=== PATIENT | female | born 1950 | race Caucasian/White ===

== ENCOUNTER 2022-07-27 08:36 | Outpatient (CLI) | payer OTHER, SELFPAY | END 2022-07-27 08:37 | disposition home or self-care (01) | LOC: NFLDREF 08-03 09:36 | PROVIDERS: PCP Internal Medicine; Referring Provider Internal Medicine; Visit Provider Internal Medicine | DX: Z00.00 Encounter for general adult medical examination without abnormal findings (principal); E11.9 Type 2 diabetes mellitus without complications; E78.5 Hyperlipidemia, unspecified; E03.9 Hypothyroidism, unspecified | CPT/HCPCS: 80061; 82947; 84443 ==

== ENCOUNTER 2023-06-14 10:07 | Outpatient (CLI) | payer MEDICARE, SELFPAY ==
--- NOTE | 2023-06-14 10:15 | CRLHL7_ITS ---
For Patients: As a result of the Century Cures Act, medical imaging exams and procedure reports are released immediately into your electronic medical record. You may view this report before your referring provider. If you have questions, please contact your health care provider. HISTORY: Right hip and buttock pain. TECHNIQUE: Routine pelvis protocol. FINDINGS: No abnormality of bone marrow signal intensity is seen throughout the pelvic bones or proximal femurs to suggest fracture, tumor or avascular necrosis. The gluteal and hamstring tendons are intact. No findings for bursitis. Mild osteoarthritic changes of both hip joints are noted with moderate to severe articular cartilage loss and small osteophytes. Diverticulosis of the left colon is noted. No intrapelvic mass. There is a small amount of free fluid present within the pelvis posteriorly. There is acute angulation of the central portion of the coccyx without bone marrow edema or fracture line. This could be developmental or related to old injury. IMPRESSION: 1. Mild osteoarthritis of both hip joints. 2. Small amount of free fluid within the pelvis of unknown etiology. Given the patient`s age, consider pelvic ultrasound for further evaluation. Dictated by Franko Robles MD @ 06/16/2023 5:44:39 AM (Electronically Signed)
--- OUTSIDE RECORDS SUMMARY | 2023-06-14 10:15 | XMS_ITS | Encounter Summary ---
Author Name Unknown Organization [facility] Address [address] [address] Care Team Providers Care Feed Mill Operator Name Role Phone Jenni Huddleston MD Primary Care Provider + Reason for Visit * Procedure/Equipment (Routine) - Incomplete Specialty Diagnoses / Procedures Referred By Lyubov t Referred To Contact Diagnoses Visit for screening mammogram Procedures MM Mammogram Screening Bilat W 3D Edgar W CAD Shasha Gandhi MD [address] [place] [address] Referral ID Status Reason Start Date Expiration Date V isits Requested Visits Authorized [id number] Incomplete 03/14/2023 06/12/2024 1 1 Encounter Details Date Type Department Care Team Description 04/22/2023 8:40 AM HEAD NURSE Ancillary Procedure [facility] [address] [facility] [place], [place] [phone] Shasha Gandhi MD [address] [place] [address] Visit for screening mammogram Social History Tobacco Use Types Packs/Day Years Used Date Smoking Tobacco: Never Smokeless Tobacco: Never Alcohol Use Standard Drinks/Week Comments Yes 14 (1 standard drink = 0.6 oz pu re alcohol) 14 glasses of wine a wk PHQ-2 Answer Date Recorded PHQ-2 Score 1 02/20/2021 Sex and Gender Information Value Date Recorded Sex Assigned at Not on file Gender Identity Not on file Sexual Orientation Not on file documented as of this encounter Plan of Treatment Upcoming Encounters Date Type Department Care Team Description 2023 7:45 AM HEAD NURSE Appointment [place] [address] [address] [place] [address] Aleah Sheppard MD [address] [place] [address] documented as of this encounter Procedures Procedure Name Priority Date/Time Associated Diagnosis Comments MM MAMMOGRAM SCREENING BILAT W 3D EDGAR W CAD Routine 04/22/2023 8:54 AM HEAD NURSE Visit for screening mammogram documented in this encounter Results * MM Mammogram Screening Bilat W 3D Edgar W CAD (04/22/2023 8:54 AM HEAD NURSE) Anatomical Region Laterality Modality Breast Bilateral Mammography Impressions 04/22/2023 9:24 AM HEAD NURSE : ACR BI-RADS Category 1: Negative RECOMMENDATION: Follow Up Imaging in 12 months - Bilateral The results and recommendations of this examination will be communicated to the patient. Narrative 04/22/2023 9:24 AM HEAD NURSE MM MAMMOGRAM SCREENING BILAT W 3D EDGAR W CAD performed on 04/22/23 Compared to: 04/16/2022 MM Mammogram Screening Bilat W CAD, 03/27/2021 MM Mammogram Screening Bilat W CAD, and 02/24/2020 MM Mammogram Screening Bilat W CAD ??? FINDINGS: Bilateral screening mammogram was performed with the assistance of Computer-Aided Detection and breast tomosynthesis. The breasts have scattered areas of fibroglandular density. There is no radiographic evidence of malignancy. ?? Shasha Gandhi MD RAD [facility] documented in this encounter Visit Diagnoses Diagnosis Visit for screening mammogram Other screening mammogram documented in this encounter Care Teams Feed Mill Operator Relationship Specialty Start Date End Date Jenni Huddleston MD [address] [place] [address] PCP - General Internal Medicine 04/16/22 documented as of this encounter
--- OUTSIDE RECORDS SUMMARY | 2023-06-14 10:15 | XMS_ITS | Clinical Summary ---
Author Name Unknown Organization [facility] Address [address] [place] [address] Care Team Providers Care Show Card Letterer Name Role Phone Jenni Huddleston MD Primary Care Provider + Source Comments You are receiving this document as you are listed as the primary care provider,follow-up provider, or the patient has been referred to you for consultation.This is in compliance with the Medicare andMedicaid EHR Incentive Program,which states Providers who transition their patient to another setting of careor provider of care or refers their patient to another provider of care shouldprovide summary care record for each transition of care or referral. cisimple Allergies Active Allergy Reactions Criticality Noted Date Comments Ampicillin Rash 11/19/2002 Medications Medication Sig Dispensed Refills Start Date End Date Status fluticasone (FLONASE) 50 MCG/ACT nasal solution Place 2 sprays into each nostril daily (every 24 hours). Dose is for each nostril. 0 01/06/2016 Active ALBUterol sulfate HFA 108 (90 Base) MCG/ACT inhalerIndications:Mil d intermittent asthma without complication (HRC) Inhale 1-2 Puffs every 4 hours as needed (Inhale 1-2 puffs every 4 hours as needed.). 1 Inhaler 3 02/18/2019 Active fluocinolone (SYNALAR) 0.01 % external solution Apply topically two times a day. 60 mL 3 01/22/2020 Active Fluocinolone Acetonide Scalp 0.01 % OILIndications:Seborrh eic dermatitis of scalp Apply to scalp 1-5 times a week as needed for scalp itching 118 mL 11 02/22/2020 Active ketoconazole (NIZORAL) 2 % shampooIndications:Tomasz orrheic dermatitis, unspecified Apply to scalp 2-3 times weekly. 120 mL 12 04/06/2021 Active atorvastatin (LIPITOR) 20 MG tablet Take 1 Tablet (20 mg) by mouth daily. 90 Tablet 3 03/01/2022 Active levothyroxine (SYNTHROID) 100 MCG tabletIndications:Post operative hypothyroidism Take 1 Tablet (100 mcg) by mouth daily. 90 Tablet 3 04/16/2022 Active Active Problems Problem Noted Date Diagnosed Date Pure hypercholesterolemia 03/19/2021 History of basal cell carcinoma (BCC) of skin Overview: 12/25/18 Skin, midline chin: Nodular basal cell carcinoma History of thyroid cancer 12/25/2012 Overview: papillary 1995, s/p initial thyroid lobe removal + LN dissection, followed by complete thyroid removal. Goal TSH should be 0.3-2 Romero consult 2016 (see media tab) implied a TSH goal of 1-1.5 Impaired fasting glucose 08/26/2012 Mild intermittent asthma without complication Overview: Infrequent use of albuterol Postoperative hypothyroidism 10/31/2002 Allergic rhinitis 10/31/2002 Resolved Problems Problem Noted Date Diagnosed Date Resolved Date Hyperplastic colon polyp 04/19/2019 Scapular dyskinesis 11/20/2015 01/12/20 17 Overview: Scapular dyskinesis, right Osteoarthrosis, hand 06/19/2012 014 Overview: Osteoarthrosis, unspecified whether generalized or localized, hand Osteoarthritis of multiple joints 05/07/2011 01/15/2018 Overview: Osteoarthrosis involving, or with mention of more than one site, but not specified as generalized, multiple sites Chronic lymphocytic thyroiditis 11/29/2004 04/14/2006 Overview: LW Onset: [id number] ; Thyroiditis Susana's Encounters Date Type Department Care Team Description 04/22/2023 8:40 AM STUNT DOUBLE Ancillary Procedure [facility] [address] [place] [address] Shasha Gandhi MD Visit for screening mammogram from Last 3 Months Immunizations Name Administration Dates Next Due Flu Vac Preserv Free (3+yrs) 04/14/2012, 03/16/2011,03/08/2008,2005,05/04/2004 Influenza (Fluzone 0.25, 6-35 mos) 04/13/2013 Influenza IIV3 (Trivalent) F luzone Highdose, 65+ Yrs (96507) 02/18/2019,03/22/2018,03/29/2017 Influenza IIV4 (Quadrivalent ) 0.5mL (88722) 04/18/2016,03/05/2014,04/13/2013 Influenza IIV4 (Quadrivalent ) Fluad, 65+ Yrs 02/20/2021,02/22/2020 Influenza, Unspecified Formulation 03/11,05/08/2000,03/16/1999,1997,03/23/1997,03/14/1996,03/23/1995,1 06/20/1993 Moderna Monovalent 12+ 07/25/2020,2020 OPV, Trivalent (Orimune or tOPV) 08/27/1990 PCV13 (Prevnar) 01/11/2017 PPSV23 (Pneumovax) 01/15/2018,05/23/1998 TDAP (BOOSTRIX) 12/25/2011 Td 10/18/2004,08/27/1990 Zoster (Zostavax) 12/25/2011 Zoster RZV (Shingrix) 06/08/2019,02/18/2019 Family History Medical History Relation Name Comments Diabetes Mother Duane Glaucoma Mother Duane Hypertension Mother Duane Macular Degeneration Mother Duane wet Stroke Mother Duane Cancer, Breast Maternal Aunt Amblyopia/Strabismus Negative Family History Blindness Negative Family History Cancer, Endometrial Negative Family History Cancer, Ovary Negative Family History Retinal Detachment Negative Family History Relation Name Status Comments Mother Duane Maternal Aunt Social History Tobacco Use Types Packs/Day Years [...] on file Sexual Orientation Not on file Last Filed Vital Signs Vital Sign Reading Time Taken Comments Blood Pressure 129/88 02/20/2021 9:14 AM CDT Pulse 61 02/20/2021 9:14 AM CDT Temperature 36.8 ??C (98.3 ??F) 05/01/2019 4:01 PM CS T Respiratory Rate 16 05/01/2019 4:01 PM STUNT DOUBLE Oxygen Saturation 100% 05/01/2019 4:01 PM STUNT DOUBLE Inhaled Oxygen Concentration - - Weight 69.4 kg (153 lb) 02/20/2021 9:02 AM CDT Height 167.6 cm (5' 6) 02/20/2021 9:02 AM CDT Body Mass Index 24.69 02/20/2021 9:02 AM CDT Plan of Treatment Upcoming Encounters Date Type Department Care Team Description 2023 7:45 AM STUNT DOUBLE Appointment [facility] [address] [place], [place] [phone] Aleah Sheppard MD [address] [place] [address] Health Maintenance Due Date Last Done Comments COVID-19 Vaccine ( season) 2023 07/25/2020, 2020 Influenza (#1) 2023 03/07/2022, 01/26, 02/20/2021, Additional history exists Med Monitoring TSH 04/16/2023 04/16/2022, 0 02/20/2021, 02/22/2020, Additional history exists Medicare Annual Wellness Visit 05/27/2023 Colonoscopy 04/15/2024 04/15/2019, 03/28, 04/19/2014 (Completed), Additional history exists Mammogram 04/22/2024 04/22/2023, 03/28, 03/27/2021, Additional history exists Dexa 01/19/2026 01/20/2016 Cholesterol 02/20/2026 02/20/2021, 01/26, 01/15/2018, Additional history exists DTaP/Tdap/Td (3 - Tdap) 07/30/2032 07/31/19 23, 12/25/2011, 10/18/2004, Additional history exists IPV (Polio) Aged Out 08/27/1990, 08/27/1990 No lo nger eligible based on patient's age to complete this topic Hep C Screening (Preventive Services) Completed 01/11/2017 Pneumococcal 65+ Yrs Completed 01/15/2018, 01/11/2017, 05/23/1998 Zoster/Shingles Completed 06/08/2019, 01/26, 12/25/2011 HepA Aged Out No longer eligi ble based on patient's age to complete this topic HepB Aged Out No longer eligi ble based on patient's age to complete this topic Hib Aged Out No longer eligi ble based on patient's age to complete this topic MCV4 Aged Out No longer eligi ble based on patient's age to complete this topic Procedures Procedure Name Priority Date/Time Associated Diagnosis Comments MM MAMMOGRAM SCREENING BILAT W 3D CHINO W CAD Routine 04/22/2023 8:54 AM STUNT DOUBLE Visit for screening mammogram from Last 3 Months Results * MM Mammogram Screening Bilat W 3D Chino W CAD (04/22/2023 8:54 AM STUNT DOUBLE) Anatomical Region Laterality Modality Breast Bilateral Mammography Impressions 04/22/2023 9:24 AM STUNT DOUBLE : ACR BI-RADS Category 1: Negative RECOMMENDATION: Follow Up Imaging in 12 months - Bilateral The results and recommendations of this examination will be communicated to the patient. Narrative 04/22/2023 9:24 AM STUNT DOUBLE MM MAMMOGRAM SCREENING BILAT W 3D CHINO W CAD performed on 04/22/23 Compared to: [...] malignancy. ?? Shasha Gandhi MD RAD [facility] from Last 3 Months Care Teams Show Card Letterer Relationship Specialty Start Date End Date Jenni Huddleston MD [address] [facility] [place] [address] PCP - General Internal Medicine 04/16/22
--- OUTSIDE RECORDS SUMMARY | 2023-06-14 10:15 | XMS_ITS | Encounter Summary ---
Author Name Unknown Organization [facility] Address [address], [place] [address] Care Team Providers Care Movie Critic Name Role Phone Jenni Huddleston MD Primary Care Provider + Reason for Visit * Reason Comments Eye Exam Encounter Details Date Type Department Care Team Description 01/24/2023 8:40 AM CDT Office Visit [facility] [address]mology [address] [facility] [address] Telly Abdi, OD [address] [place], [place] [id number] Pseudophakia of both eyes (Primary Dx); Retinal tear of right eye; Epiretinal membrane, left eye; History of vitrectomy Social History Tobacco Use Types Packs/Day Years [...] on file documented as of this encounter Progress Notes * Telly Abdi, OD - 01/24/2023 8:40 AM CDT I reviewed the information stated in the triage technician's note for today and agree, unless otherwise noted below. I reviewed the patient's past medical history, medications, family history, and social history. General: Generally healthy appearing. Alert and oriented x 3. Subjective: See tech note for today Assessment: ICD-10-CM 1. Pseudophakia of both eyes Z96.1 2. Retinal tear of right eye H33.311 3. Epiretinal membrane, left eye H35.372 4. History of vitrectomy Z98.890 Plan: 1. doing well; copy of new Rx given 2. h/o nasal RD w/ HST, well surrounding by laser; RD precautions rtc betsy; observe 3-4. h/o erm LE s/p ppv/mp (Dr. Glover); doing well; great acuity; observe rtc 1 yr Discussed findings with the patient. documented in this encounter Plan of Treatment Upcoming Encounters Date Type Department Care Team Description 2023 7:45 AM CABLE MAINTAINER Appointment [place] [address] [address] [facility] [place] [address] Aleah Sheppard MD [address] [place] [address] documented as of this encounter Visit Diagnoses Diagnosis Pseudophakia of both eyes- Primary Lens replaced by other means Retinal tear of right eye Epiretinal membrane, left eye Macular puckering of retina History of vitrectomy Other states following surgery of eye and adnexa documented in this encounter Care Teams Movie Critic Relationship Specialty Start Date End Date Jenni Huddleston MD [address] [place] [address] PCP - General Internal Medicine 04/16/22 documented as of this encounter
== END 2023-06-14 10:08 | disposition home or self-care (01) ==
PROVIDERS: PCP Internal Medicine; Visit Provider Internal Medicine
DX: M25.551 Pain in right hip (principal); M16.0 Bilateral primary osteoarthritis of hip; M79.18 Myalgia, other site; R20.0 Anesthesia of skin
CPT/HCPCS: 72195

== ENCOUNTER 2023-07-09 08:15 | Outpatient (RCR) | payer OTHER, SELFPAY ==
--- NOTE | 2023-03-28 13:10 | PT.OPEX ---
PT [place] Outpatient Eval PT [facility] Outpatient Eval Start: 03/14/23 15:52 Freq: Status: Active Protocol: Document 03/14/23 14:04 HN (Rec: 03/15/23 17:01 HN [id number]) E-signed By Sofiya Sepulveda DPT Physical Therapy Outpatient Evaluation Insurance Information Insurance Name [place] [employer] Insurance Information/Comments [facility] Medical Diagnosis G57. 0 for Lesion of sciatic nerve Treating Diagnosis M54. 31 for Sciatica, right side Referring MD Shasha Gandhi MD Subjective Subjective Patient is a 72 year old female with R insidious onset glute pain and radiating symptoms in November or December 2022. Pain is waking up at night 5 time per week. keeps awake for 1-2 hour after waking up. Pain characteristics: R glute pain pain, with, does get shooting pain down to heel can be tingling Aggravating factors: triggered with kneeling at caodaism, prolonged positioning, increased pain at night Easing Factors: advil heating pad, Prior level of function: unlimited and with all ADLs and IADLs Current limitations: walking, kneeling, prolonged sitting Red flags: denies recent infection, saddle anesthesia, bowel/bladder changes Imaging: no imaging completed thus far PMH: hx of thyroid cancer, HLD managed with medication, otherwise unremarkable Social History: retired, pt is very active, alternates walking/elliptical (3-4 miles) or bike (10-20 miles), light weight lifting, also spends time watching grandchildren, lives with in multistory home but all needs met on first floor Pain Comments Current: -07/06 Best: 01/03 Worst: -02/03 Current Work Status Retired Preferred Name Che Precautions Treatment Precautions/Contraindications Red flags: denies recent infection, saddle anesthesia, bowel/bladder changes PMH: hx of thyroid cancer, HLD managed with medication, otherwise unremarkable Weight Bearing Status Full Weight Bearing Therapy Limitations/Systems Review Not Limited Objective Other/Pertinent Objective Lumbar range of motion (% full range of motion) Flexion: 80 % Extension: 90% with increased pain Left sidebendin% Right sidebendin% increasd pain Left rotation: 100% with increased pain Right rotation: 100% Hip range of motion (degrees): H Hip ROM is WFL with no reproduction of symptoms Manual muscle testing: Hip flexion: 5/5 L , 5/5 R Hip abduction: 5/5 L , 3/5 R significant increase in pain Hip extension: 5/5 L , 3/5 R witth significant increase in pain Knee extension: 5/5 L , 5/5 R Knee flexion: 5/5 L , 5/5 R Ankle DF: 5/5 L , 5/5 R Ankle PF: 5/5 L , 5/5 R TA activation: Special tests: Slump: negative Straight leg raise: negative LUX: negative FADIR: negative SCOUR: negative Repeated extension: symptoms worse with repeated extension, but no centralization or peripheralization Repeated flexion: no change Pt denies any changes in sensation PA mobilizations: normal with no reproduction of symptoms Palpation: increased tenderness/reproduction of symptoms along external rotators/piriformis Assessment Assessment/Impression Patient is a 72 year old with complaints of insidious onset R hip pain in November 2022. Patient demonstrates impaired R hip strength, increased pain with palpation and reports of paresthesias consistent with piriformis syndrome with potential contribution from glute med/max. The impairments impact the patients prolonged sitting/ standing/walking, full participation in ADLs and IADLs, and restful sleep. Patient will benefit from skilled physical therapy to address the impairments and activity limitations listed above. Prognostic factors include few comorbidities, level of activity and patient motivation. Primary Functional Limitations prolonged sitting/standing/ walking, full participation in ADLs and IADLs, and restful sleep. Plan of Care Rehabilitation Potential Good Physical Therapy Goals terminal operator goals (8-10 weeks ) 1. Patient will tolerate standing >25 minutes with no increase in pain order to complete ADLs 2. Patient will demonstrate independence with HEP in order to manage symptoms independently at home 3. Patient will reports no increase in pain in R glute when kneeling at caodaism 4. Patient will report <3 sleep disturbances per week related to hip and nerve pain. 4. Patient will report <3/10 pain at worst order to demonstrate decreased pain and disability related to symptoms. 5. Patient will demonstrate MMT of 4/5 in R hip and LE in order to demonstrate improved tolerance with lifting, carrying groceries. Coordination/Communication With Referral Source Treatment Plan/Direct Interventions Electrical Stimulation,Gait Training,Joint Mobilization, Manual Therapy,Neuromuscular Re-ed,Self-Care/Home Management,Therapeutic Activities,Therapeutic Exercises Frequency/Duration 1x/week for 8-10 weeks Patient Will Be Discharged From Therapy Skills Plateau,Independent w/ HEP Evaluation Billing Untimed Code Treatment Minutes 18 Complexity Low Certification Information Physician Comment/Change : Physician NPI Number #
== END 2023-09-12 11:14 | disposition home or self-care (01) ==
PROVIDERS: PCP Internal Medicine; Visit Provider Internal Medicine
DX: G57.01 Lesion of sciatic nerve, right lower limb (principal); Z51.89 Encounter for other specified aftercare
CPT/HCPCS: 97110; 97140; 97161

== ENCOUNTER 2023-08-09 07:54 | Outpatient (CLI) | payer MEDICARE, SELFPAY | END 2023-08-09 07:55 | disposition home or self-care (01) | LOC: NFLDREF 12:04 | PROVIDERS: PCP Internal Medicine; Referring Provider Internal Medicine; Visit Provider Internal Medicine | DX: R73.03 Prediabetes (principal); E03.2 Hypothyroidism due to medicaments and other exogenous substances; E78.5 Hyperlipidemia, unspecified | CPT/HCPCS: 80061; 82947; 84443 ==

== ENCOUNTER 2023-12-05 07:30 | Outpatient (RCR) | payer MEDICARE, SELFPAY ==
--- NOTE | 2023-10-22 07:24 | PT.OPEX ---
PT [place] Outpatient Eval PT [facility] Outpatient Eval Start: 10/18/23 13:04 Freq: Status: Active Protocol: Document 10/18/23 13:04 CRP (Rec: 10/18/23 15:48 CRP [id number]) E-signed By Lalo Marino PT Physical Therapy Outpatient Evaluation Insurance Information Recert Due Date 01/16/24 Insurance Name Medicare B,[facility] Medical Diagnosis Back pain Referring MD Dr Guerrero Subjective Subjective Pt reports ongoing R low back pain that started about July/ August. Pain is always on the R side. Few days a weeks she will have pain down her R LE. Pain can also be at a point in the R gluteals. Pt began prednisone recently. This has really helped. She is basically pain free today. Walking does seem to aggravate her LBP. Is currently going to the gym a few days per week . No notable connection between the gym and sxs. Sleep is impacted. Needs to switch from side to side often because of the gluteal pain. Pt had PT at the beginning of the year which did help but the sxs never went away. Pain Comments Pain range 1-5/10 Current Work Status Retired Objective Other/Pertinent Objective Trunk ROM: flex min dec with mild gluteal pain on R. Ext mod dec with major R gluteal pain. R SB min Dec. L SB min dec, R rot painful on R. L rot WNL Hip ROM: L flex min dec with R gluteal pain. R IR painful into guteals. ALl other testing WNL. SLR negative bilat MMT: Myotomes WNL. Shows weakness of abdominal with poor lumbopelvic control. Assessment Assessment/Impression Pt presents to the clinic with signs and sxs consistent with lumbar spine DJD/DDD and resulting LE radicular pain pattern. Pts presentation is characterized by decreased trunk ROM with associated pain , poor lumbopelvic control, and segmental pain/ hypomobility. Skilled PT is necessary to incorporate ther ex, nm jennifer, manual therapy and pt education to decrease pain and improve functional mobility. 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 Pt will be independent with HEP in 8 weeks. 2. Pt will complete exercise as desired with 80% decrease in pain in 10 weeks. 3. Pt will complete car supervisor without pain in 12 weeks. Coordination/Communication With Referral Source Treatment Plan/Direct Interventions Joint Mobilization,Manual Therapy,Neuromuscular Re-ed, Self-Care/Home Management, Therapeutic Activities, Therapeutic Exercises Frequency/Duration 1-2x/wk for 12 weeks Patient Will Be Discharged From Therapy Completion of LTG(s),Skills Plateau,Independent w/HEP, Independently Progressing Evaluation Billing Untimed Code Treatment Minutes 40 Complexity Moderate Certification Information Initial Certification Date 10/18/23 Ending Certification Date 01/16/24 Provider Signature Shows Agreement With POC & Medical Necessity Physician Signature & Date Requested Please Sign/Date Here Physician Comment/Change : Physician NPI Number #
== END 2024-04-03 23:59 | disposition home or self-care (01) ==
PROVIDERS: PCP Internal Medicine; Visit Provider Family Medicine
DX: M54.9 Dorsalgia, unspecified (principal); Z51.89 Encounter for other specified aftercare
CPT/HCPCS: 97110; 97140; 97162

== ENCOUNTER 2024-07-24 10:10 | Outpatient (CLI) | payer OTHER, SELFPAY | END 2024-07-24 10:11 | disposition home or self-care (01) | LOC: NFLDREF 07-25 13:40 | PROVIDERS: PCP Internal Medicine; Referring Provider Internal Medicine; Visit Provider Internal Medicine | DX: E78.5 Hyperlipidemia, unspecified (principal); R73.03 Prediabetes; E03.2 Hypothyroidism due to medicaments and other exogenous substances | CPT/HCPCS: 80061; 82947; 84443 ==

== ENCOUNTER 2024-08-05 07:08 | Outpatient (CLI) | payer OTHER, SELFPAY ==
--- NOTE | 2024-08-05 07:15 | CRLHL7_ITS ---
For Patients: As a result of the Century Cures Act, medical imaging exams and procedure reports are released immediately into your electronic medical record. You may view this report before your referring provider. If you have questions, please contact your health care provider. INDICATION: Trace pelvic fluid seen in MRI 2023. TECHNIQUE: Ultrasound pelvis transabdominal and transvaginal for better assessment or to better visualize the endometrium. Real-time sonographic images with spectral and color Doppler imaging of the ovaries were obtained. COMPARISON: MRI pelvis May 2023 FINDINGS: Uterus: Uterus is atrophic and measures 5.5 x 3.6 x 4.4 cm. Endometrial canal thickness measures 1.6 millimeter. No focal intrauterine mass. No fluid or mass within the endometrium. Nonvisualization of bilateral ovaries secondary to bowel gas. Cul-de-sac: No significant free fluid. IMPRESSION: 1. Normal ultrasound examination of the uterus. No free fluid. 2. Nonvisualization of ovaries. Dictated by Ana Blackman MD @ 08/05/2024 12:40:37 PM (Electronically Signed)
--- NOTE | 2024-08-05 08:15 | CRLHL7_ITS ---
For Patients: As a result of the Century Cures Act, medical imaging exams and procedure reports are released immediately into your electronic medical record. You may view this report before your referring provider. If you have questions, please contact your health care provider. INDICATION: Low back pain. TECHNIQUE: Multisequence multiplanar MRI of the lumbar spine without the use of intravenous contrast. COMPARISON: Correlated with lumbar spine radiographs dated 07/27/2024. FINDINGS: Normal vertebral alignment and stature. No T1 hypointense infiltrative lesion. Incidental L3 vertebral hemangioma. Multilevel disc height loss with associated Modic type I/II degenerative endplate signal at L4-L5. The conus medullaris terminates normally at the L1-L2 level. T12-L1: Shallow symmetric disc bulge. No significant spinal canal or neural foraminal stenosis. L1-L2: Shallow symmetric disc bulge. Mild facet joint arthrosis. No significant spinal canal or neural foraminal stenosis. L2-L3: Symmetric disc bulge. Mild facet joint arthrosis. No significant spinal canal stenosis. Mild bilateral neural foraminal narrowing. L3-L4: Symmetric disc bulge. Mild facet joint arthrosis. No significant spinal canal stenosis. Moderate right and mild left neural foraminal narrowing. L4-L5: Symmetric disc bulge. Mild facet joint arthrosis. Mild narrowing of the lateral recesses with questionable mass effect on the traversing L5 nerve roots. Mild bilateral neural foraminal narrowing. L5-S1: Symmetric disc bulge. Mild facet joint arthrosis. Mild narrowing of the lateral recesses with questionable mass effect on the traversing S1 nerve roots. No high-grade neural foraminal narrowing. IMPRESSION: 1. Multilevel disc height loss with associated degenerative endplate signal at L4-L5. 2. At L3-L4, moderate right neural foraminal narrowing. 3. At L4-L5 and L5-S1, narrowing of the lateral recesses with questionable mass effect on the traversing L4 and L5 nerve roots. Dictated by Rivera Baum MD @ 08/06/2024 9:44:21 AM (Electronically Signed)
== END 2024-08-05 07:09 | disposition home or self-care (01) ==
LOC: US 07:09
PROVIDERS: PCP Internal Medicine; Visit Provider Family Medicine
DX: M54.50 Low back pain, unspecified (principal); M51.26 Other intervertebral disc displacement, lumbar region; M51.27 Other intervertebral disc displacement, lumbosacral region; M54.10 Radiculopathy, site unspecified; R93.89 Abnormal findings on diagnostic imaging of other specified body structures
CPT/HCPCS: 72148; 76830

== ENCOUNTER 2024-09-01 10:12 | Outpatient (CLI) | payer OTHER, SELFPAY ==
--- NOTE | 2024-09-01 11:33 | P.ANES_ITS ---
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
--- NOTE | 2024-09-01 11:33 | W.ANESCHARGE ---
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
== END 2024-09-01 10:13 | disposition home or self-care (01) ==
LOC: OP CLINIC 10:13
PROVIDERS: PCP Internal Medicine; Visit Provider Surgery
DX: Z12.11 Encounter for screening for malignant neoplasm of colon (principal); D12.3 Benign neoplasm of transverse colon; K57.30 Diverticulosis of large intestine without perforation or abscess without bleeding; Z86.0102 Personal history of hyperplastic colon polyps; Z83.718 Family history of other colon polyps
CPT/HCPCS: 00811; 45385; 88305; 99100; J2704